=== PATIENT | male | born 1940 | race Caucasian/White ===

== ENCOUNTER 2018-07-07 11:42 | Inpatient (IN) | payer OTHER ==
[~2018-07-07] VITALS: Ht 177.8 cm; Wt 121.9 kg
[~2018-07-07 11:42] MED LIST: AMLODIPINE BESY10 MG PO; ASPIR 8181 MG PO; CATAPRES-TTS 20.2 M1 TRANSDERM; CATAPRES0.2 MG TRANSDERM; CLONIDINE HCL0.3 M3 TRANSDERM; COLACE100 MG PO; COUMADIN 5 MG TA5 M1 PO; GOLYTELY PACKE1 EACH PO; HYTRIN 5 M5 MG/1 CAP PO; LISINOPRIL20 MG PO; NITROGLYCERIN0.4 MG SUBLING; PANTOPRAZOLE SO40 M1 PO; PEPCID20 MG PO; PHENERGAN 25 MG25 M1 PO; PLAVIX 75 MG TA75 M1 PO; POTASSIUM20 PO; PROCRIT 1010000 U/M1 SUBQ; PROTONIX40 M1 PO; REGLAN 10 MG TA10 MG PO; SENNA PO; TUMS PO; TYLENOL325 MG PO; VENTOLIN HFA 1818 GM INH; VITAMIN D1000 UNI1 PO; ZOFRAN ODT4 MG DISSOLVE
[2018-07-07 12:05] LABS: ABSOLUTE NEUTROPHILS 9.2 thou/uL (1.4-8.2); BASOPHILS 0.6 % (0.0-2.0); HEMATOCRIT 28.4 % (42.0-52.0); HEMOGLOBIN 9.5 gm/dL (14.0-18.0); LYMPHOCYTES 10.1 % (24.0-44.0); MCH 30.8 pg (26.0-34.0); MCHC 33.4 g/dL (28.0-37.0); MCV 92.1 fL (80.0-100.0); MONOCYTES 9.8 % (1.0-8.0); PLATELET COUNT 256 thou/uL (150-400); POLYS 79.5 % (36.0-66.0); RBC 3.09 mil/uL (4.50-6.00); RDW 13.2 % (10.5-14.5); WBC 11.6 thou/uL (4.0-11.0)
[2018-07-07 12:07] LABS: BE(vivo) -2.8 mmol/L (-2 to +3); HCO3 22.1 mmol/L (22.0-26.0); PO2 181.1 mmHg (80.0-100.0); pH 7.372 (7.360-7.450); sO2 99.2 % (92.0-98.0)
[2018-07-07 12:14] LABS: ANION GAP 10 mmol/L (7-16); BUN 27 mg/dL (7-18); CALCIUM 9.2 mg/dL (8.5-10.1); CHLORIDE 104 mmol/L (98-107); CO2 25 mmol/L (21-32); CREATININE 1.8 mg/dL (0.7-1.3); GLUCOSE 121 mg/dL (74-106); POTASSIUM 4.4 mmol/L (3.5-5.1); SODIUM 139 mmol/L (136-145)
[2018-07-07 12:22] LABS: ALBUMIN 3.4 g/dL (3.4-5.0); SGOT 19 U/L (15-37); SGPT 26 U/L (30-65); TOTAL BILIRUBIN 0.2 mg/dL (<0.1-1.0); TOTAL PROTEIN 7.3 g/dL (6.4-8.2); TROPONIN-I <0.06 ng/mL (<0.06)
[2018-07-07 13:06] LABS: PROTIME 10.2 Seconds (9.3-11.4)
[2018-07-07] MEDS ORDERED: LIPITOR80 MG PO (13:25)
[2018-07-07] MEDS ORDERED: ELIQUIS5 MG PO (13:26)
[2018-07-07] MEDS ORDERED: SPIRIVA RESPIMAT4 G1 (13:27)
[2018-07-07] MEDS ORDERED: OCUVITE EYE +1 EACH PO (13:29)
[2018-07-07] MEDS ORDERED: COREG6.25 MG PO (13:29)
[2018-07-07] MEDS ORDERED: PROSCAR 5MG TABL5 M1 PO (15:07)
[2018-07-07] MEDS ORDERED: PHENERGAN 25 MG25 M1 PO (16:34)
[2018-07-07 16:46] LABS: TSH 0.666 uIU/mL (0.358-3.740)
--- NOTE | 2018-07-07 18:34 | NUR ---
Assumed care of Pt on arrival to unit at approx 1600. pt aox3 labored breathing weaned to 8L NC. up w/ 1 assist. coarse lung sounds. non productive cough. trace edema to lower ext. home meds resumed. iv abx infusing per order. calls appropriately. fall precautions in place.
[2018-07-07 19:20] VITALS: BP 164/83
[2018-07-07 23:40] VITALS: BP 152/58
[2018-07-08 03:21] VITALS: BP 140/54
[2018-07-08 05:34] LABS: HEMATOCRIT 26.6 % (42.0-52.0); HEMOGLOBIN 8.9 gm/dL (14.0-18.0); MCH 30.2 pg (26.0-34.0); MCHC 33.3 g/dL (28.0-37.0); MCV 90.6 fL (80.0-100.0); RBC 2.94 mil/uL (4.50-6.00); RDW 13.3 % (10.5-14.5); WBC 6.2 thou/uL (4.0-11.0)
[2018-07-08 05:45] LABS: CALCIUM 8.7 mg/dL (8.5-10.1); CREATININE 1.7 mg/dL (0.7-1.3); MAGNESIUM 2.1 mg/dL (1.8-2.4); POTASSIUM 4.6 mmol/L (3.5-5.1)
[2018-07-08 08:04] VITALS: BP 134/68
--- NOTE | 2018-07-08 08:07 | NUR ---
SLEPT MOST OF SHIFT. ASSISTED UP TO COMODE NEEDED FOR VOIDING. STATING THAT HE CANNOT VOID IN THE URINAL. MAINTAIN SAFE ENVIRONMENT. WORKING ON GOALS AND PLAN OF CARE FOR NOC. PROGRESSING SLOWLY TOWARDS DISCHARGE GOALS. CONTINUE TO ASSESS. COUGH MEDICATION GIVEN PRN.
--- NOTE | 2018-07-08 10:54 | EKG ---
[address] [address] ELECTROCARDIOGRAM REPORT Name: MILENARUSS F Room #: 357-P ADM IN M.R.#: [id number] Admission: 07/07/18 Attend Phys: Desmond Carlton MD Discharge: Date of : 44 Report #: [id number] THIS REPORT FOR: //name// [facility] ED Test Date: 2018-07-07 Test Time: 11:53:17 Pat Name: RUSS ABBOTT Department: Room: [facility] Gender: M Lan Analyst: CARI : 1940 Requested By: Sylvester Barragan Order Number: [id number] MD: Foreign Meade Measurements Intervals [place] Rate: 82 P: AK: 237 QRS: 16 QRSD: 78 T: 56 QT: 362 QTc: 423 Interpretive Statements Atrial-paced complexes Prolonged [place] interval Anteroseptal infarct, age indeterminate Compared to ECG 09/22/2014 09:06:41 First degree AV block now present Myocardial infarct finding now present Sinus rhythm no longer present Electronically Signed On 07-08-2018 10:54:23 EMPLOYEE'S REPRESENTATIVE by Foreign Meade [email or web address] <ELECTRONICALLY SIGNED> By: Foreign Meade MD 07/08/18 1054 1153 [id number] Foreign Meade MD /EPI
[2018-07-08 11:40] VITALS: BP 127/76
[2018-07-08 17:16] VITALS: BP 150/77
[2018-07-08 19:15] VITALS: BP 161/70
--- NOTE | 2018-07-08 19:58 | NUR ---
care of pt assumed at ~0700 this am. pt's activity today has consisted of up from bed to the bsc to void and back to bed. pt refused to sit up in his chair for meals today, prefering his bed for meals. pt noted to be very soa w/ activity ([facility] [place]) and takes ~ 5-10 minutes to recover after activity. pt able to reposition self in bed for comfort. pt up to the bsc ~ every 2 hours. pt receiving ivf's w/o issue today. pt received dentures paste from his daughter so was able to use his dentures for dinner and enjoy his food more than breakfast and lunch. pt co of frequent dry non-productive cough today, medication requested and given for cough that pt stated was very effective in relieving his cough today. pt is looking forward to a good night's sleep tonight.
[2018-07-08 23:15] VITALS: BP 145/56
[2018-07-09 03:46] VITALS: BP 166/65
[2018-07-09 05:32] LABS: HEMATOCRIT 25.2 % (42.0-52.0); HEMOGLOBIN 8.4 gm/dL (14.0-18.0); MCH 30.6 pg (26.0-34.0); MCHC 33.3 g/dL (28.0-37.0); MCV 91.7 fL (80.0-100.0); RBC 2.74 mil/uL (4.50-6.00); RDW 13.2 % (10.5-14.5); WBC 10.1 thou/uL (4.0-11.0)
[2018-07-09 05:38] LABS: CALCIUM 8.3 mg/dL (8.5-10.1); CREATININE 1.8 mg/dL (0.7-1.3); MAGNESIUM 2.2 mg/dL (1.8-2.4); POTASSIUM 4.7 mmol/L (3.5-5.1)
--- NOTE | 2018-07-09 06:31 | NUR ---
ASSUMED PT CARE AROUND 1900. A&OX4. PLEASANT AND COOPERATIVE. DENIES ANY PAIN. SOA W/ EXERTION. O2 SATS STABLE ON 2L NC. UP TO BSC TO VOID. PT SLEPT MOST OF THE NIGHT. FALL PRECAUTIONS IN PLACE. PROGRESSING SLOWLY TOWARD POC GOALS. WILL CONTINUE TO MONITOR FURTHER.
[2018-07-09 08:42] VITALS: BP 151/86
[2018-07-09 12:30] VITALS: BP 160/81
[2018-07-09 13:30] LABS: % SATURATION 27 % (20-39); IRON 51 ug/dL (65-175); TIBC 189 ug/dL (250-450)
--- NOTE | 2018-07-09 14:08 | NUR ---
ASSESSMENT: CM REVIEWED CHART AND MET WITH PATIENT AT THE BEDSIDE. PT IS ALERT AND ORIENTED X4. PT WAS ADMITTED DUE TO COPD EXACERBATION. PT REPORTS THAT HE LIVES IN A HOUSE WITH HIS DAUGHTER. PT REPORTS IT IS HANDICAP EQUIPPED. PT REPORTS THAT HE HAS NO STEPS TO ENTER OR ONCE INSIDE. PT REPORTS THAT HE USES A WALKER FOR AMBULATION IN THE HOME AND HAS A WHEELCHAIR FOR OUTSIDE THE HOME. PT REPORTS THAT HE HAS A GRAB BAR AND A SHOWER CHAIR. PT REPORTS HE HAS HAD HH IN THE PAST ([facility]) AND REPORTS HE FELT IT WAS A BIG WASTE OF TIME. PT REPORTS HE BELIEVES HE HAS BEEN TO THE REHAB ON OUR 5TH FLOOR BEFORE. PT/OT IS WORKING WITH PATIENT AND RECOMMENDING HH. CM DISCUSSED WITH PATIENT AND HE STATES HE DOES NOT WANT IT AND IT IS A WASTE OF TIME. CM DISCUSSED ANOTHER AGENCY COULD BE USED AND HE STATED HE DOES NOT WANT IT OR NEED IT. CM DISCUSSED WITH PATIENTS DAUGHTER WHO STATES UNDERSTANDING AND FELT HH WAS A WASTE OF TIME LAST TIME. PT REPORTS THAT HE IS NOT ON OXYGEN AT HOME BUT IS CURRENTLY ON 2L. CM WILL CONTINUE TO MONITOR TO ASSIST NEEDED.
[2018-07-09 14:15] LABS: FOLIC ACID 28.1 ng/mL (8.6-58.9)
[2018-07-09 16:51] VITALS: BP 166/79
--- NOTE | 2018-07-09 17:30 | NUR ---
ASSUMED PATIENT CARE AT 0700. A/0 X4. SOB WITH EXERTION. DENIES CHEST PAIN. UP WITH ASSISTED TO BSC. SLOWLY TOWARDS POC GOALS.
[2018-07-09 19:35] VITALS: BP 157/73
[2018-07-10 04:30] VITALS: BP 149/61
--- NOTE | 2018-07-10 04:40 | NUR ---
ASSUMED PT CARE AROUND 1900. A&OX4. PLEASANT AND COOPERATIVE. DENIES ANY PAIN. SOA W/ EXERTION. PT SLEPT MOST OF THE NIGHT. RESP EVEN AND UNLABORED. UP W/ ASSIST TO BTR OR BSC TO VOID. FALL PRECAUTIONS IN PLACE. PROGRESSING SLOWLY TOWARD POC GOALS. WILL CONTINUE TO MONITOR FURTHER.
[2018-07-10 06:17] LABS: HEMATOCRIT 25.5 % (42.0-52.0); HEMOGLOBIN 8.5 gm/dL (14.0-18.0); MCH 30.7 pg (26.0-34.0); MCHC 33.4 g/dL (28.0-37.0); RBC 2.77 mil/uL (4.50-6.00); RDW 13.3 % (10.5-14.5); WBC 9.5 thou/uL (4.0-11.0)
[2018-07-10 06:41] LABS: CALCIUM 8.5 mg/dL (8.5-10.1); CREATININE 1.8 mg/dL (0.7-1.3); MAGNESIUM 2.3 mg/dL (1.8-2.4); POTASSIUM 4.5 mmol/L (3.5-5.1)
[2018-07-10 07:02] VITALS: BP 167/81
[2018-07-10 11:21] VITALS: BP 163/70
--- NOTE | 2018-07-10 13:49 | NUR ---
ON-GOING ASSESSMENT: CM REVIEWED CHART AND SPOKE WITH ATTENDING. PT IS SLOWLY PROGRESSING TOWARDS GOALS. PT IS POSSIBLE DISCHARGE IN THE NEXT 1-2 DAYS. CM ATTEMPTED TO CONTACT PATIENTS DAUGHTER WHOM HE LIVES WITH TO UPDATE, BUT LEFT VM.
[2018-07-10 15:50] VITALS: BP 164/86
[2018-07-10 19:20] VITALS: BP 137/78
--- NOTE | 2018-07-10 19:51 | NUR ---
Assumed care of patient at 0700. Vitals have been stable. Able to titrate off oxygen today and maintaining oxygen saturations >94% on RA. Denies pain. Patient alert and oriented x4, pleasant. Up with one assist, gait belt and walker to bathroom. Does get SOB with exertion but is able to recover well on own. Patient has complained of intermittent nausea today, but no emesis. Phenergen changed to scheduled at 0600, per patient's home scheduled. Also ordered Zofran PRN - given x1 with good effect. Slowly progressing towards POC. Will continue to monitor.
[2018-07-11] VITALS (7 sets, daily range): BP systolic 133–172; BP diastolic 68–80
--- NOTE | 2018-07-11 05:15 | NUR ---
ASSUMED PT CARE AROUND 1900. A&OX4. DENIES ANY PAIN. PT SLEPT MOST OF THE NIGHT. RESP EVEN AND UNLABORED. PLACED BACK ON 2L NC EARLY THIS AM DUE TO O2 SATS 87-89% ON RA. SOA W/ EXERTION. VSS. AFEBRILE. PROGRESSING TOWARD POC GOALS. WILL CONTINUE TO MONITOR FURTHER.
[2018-07-11 05:25] LABS: HEMATOCRIT 26.3 % (42.0-52.0); HEMOGLOBIN 8.5 gm/dL (14.0-18.0); MCH 29.9 pg (26.0-34.0); MCHC 32.3 g/dL (28.0-37.0); MCV 92.5 fL (80.0-100.0); RBC 2.85 mil/uL (4.50-6.00)
[2018-07-11 05:40] LABS: CALCIUM 8.1 mg/dL (8.5-10.1); CREATININE 1.9 mg/dL (0.7-1.3); MAGNESIUM 2.4 mg/dL (1.8-2.4); POTASSIUM 4.7 mmol/L (3.5-5.1)
[2018-07-11] MEDS ORDERED: DELSYM COU30 MG/5 M1 PO (12:14)
[2018-07-11] MEDS ORDERED: BENZONATATE100 MG PO (12:14)
[2018-07-11] MEDS ORDERED: PREDNISONE 10 M10 MG PO (12:14)
[2018-07-11] MEDS ORDERED: PROTONIX 20 MG20 M1 PO (12:15)
--- NOTE | 2018-07-11 14:41 | NUR ---
ON-GOING ASSESSMENT: CM REVIEWED CHART AND MET WITH PATIENT AT THE BEDSIDE. PT CONTINUES TO REFUSE HH STATING ITS A WASTE OF TIME AND HE DOESNT WANT IT. CM HIGHLY ENCOURAGED HH AND THE BENEFITS BUT HE CONTINUES TO REFUSE. PTS DAUGHTER WHO LIVES WITH HIM IS AT THE BEDSIDE. SHE HAS A QUESTIONS ABOUT HIS RX AND [facility] STATING SHE DOES NOT THINK THEY WILL FILL THEM UNLESS IT IS A RX WRITTEN BY HIS PCP. CM CONTACTED [facility] [phone] AND 2 STAFF STATED LONG PT GOES TO THE [facility] TO GET HIS SCRIPTS FILLED THEY SHOULD HAVE NO TROUBLE FILLING THE SCRIPTS WRITTEN BY OUR PHYSICI[facility] AT THE [facility]OS[facility]. CM NOTIFIED PATIENT AND HIS DAUGHTER AND GAVE THEM THE MAIN NUMBER FOR THE [facility] AND WAS TOLD TO ASK FOR PHARMACY WITH ANY QUESTIONS. PT ALSO HAD QUESTIONS ABOUT [facility] COVERING HIS BILL HERE STATING HE NORMALLY GOES TO THE [facility] BUT SINCE HE WAS FEELING SO POORLY MONDAY WHEN HE CALLED THE AMBULANCE HE REPORTS THE AMBULANCE BROUGHT HIM HERE SINCE THE WEATHER WAS BAD RATHER THEN DRIVING ALL THE WAY TO [facility]. CM DISCUSSED NOTE FROM PRE-CERT STATING THEY CONTACTED THE [facility] AND THEY ARE NOT AUTHORIZING HIS CARE BUT HE MAY BE ELIGIBLE FOR RETRO REVIEW THROUGH THE [facility]IN. CM CONTACTED THE [facility] TO GET MORE INFO FOR PATIENT. CM DISCUSSED SITUATION WITH THE [facility] AND HE REPORTS THERE IS A NOTE THAT THE OFFICE OF COMMUNITY CARE IS ALREADY AWARE AND IF PATIENT RECEIVES A BILL TO MAKE COPIES AND MAIL IT TO THE [facility] ATTN:SHIRLEY PALACIOS. ROSEMARIE PASSED THIS ON TO THE PATIENT AND HIS DAUGHTER. CM STILL WAITING TO SEE IF PATIENT NEEDS HOME OXYGEN.
--- NOTE | 2018-07-11 15:47 | NUR ---
care of pt assumed this am @ ~0700. pt awake this am, awaiting breakfast, stating he is "so hungry". pt denies co pain, n/v/d today. pt does co soa w/ exertion (to bsc and when walked w/ pt and ot). pt noted to be wearing oxygen today (put on with noc shift) dt soa, but has been titrated off today. pt walked by rt for (activity saturation text) this afternoon to assess need for home oxygen. no need for pt to have O2 at home, informed cm/rn. pt's daughter has been at late morning till present. pt aware of impending dc today. cm/rn has called [place] pharmacy to confirm pt's ability to fill scripts given from dr. gaspar at their facility, which was a concern of the pt and his daughter. encouraged pt to take and record his weight each day to help manage his chf. pt is looking forward to going home today.
== END 2018-07-11 18:49 | disposition home or self-care (01) | DRG 189 ==
LOC: ER 11:42 → EROBS 13:56 → 3W 13:56 → ENTRNSPT 07-11 18:14 → 3W 07-11 18:49
PROVIDERS: Physician Assistant; ADMIT Internal Medicine
PROC: 5A09357 Assistance with Respiratory Ventilation, Less than 24 Consecutive Hours, Continuous Positive Airway Pressure (ICD-10-PCS; principal; 2018-07-07)
DX: J96.01 Acute respiratory failure with hypoxia (principal); J44.1 Chronic obstructive pulmonary disease with (acute) exacerbation; N18.4 Chronic kidney disease, stage 4 (severe); I25.10 Atherosclerotic heart disease of native coronary artery without angina pectoris; I48.91 Unspecified atrial fibrillation; M10.9 Gout, unspecified; N64.2 Atrophy of breast; N40.0 Benign prostatic hyperplasia without lower urinary tract symptoms; E78.5 Hyperlipidemia, unspecified; D63.8 Anemia in other chronic diseases classified elsewhere; E55.9 Vitamin D deficiency, unspecified; Z79.899 Other long term (current) drug therapy; Z79.82 Long term (current) use of aspirin; Z95.5 Presence of coronary angioplasty implant and graft; Z86.14 Personal history of Methicillin resistant Staphylococcus aureus infection; Z87.891 Personal history of nicotine dependence
CPT/HCPCS: 10879

== ENCOUNTER 2020-08-28 23:28 | Emergency (ER) | payer OTHER ==
[~2020-08-28] VITALS: Ht 175.3 cm; Wt 136.1 kg
[~2020-08-28 23:28] MED LIST changes: +BENZONATATE100 MG PO; +COREG6.25 MG PO; +DELSYM COU30 MG/5 M1 PO; +ELIQUIS5 MG PO; +LIPITOR80 MG PO; +OCUVITE EYE +1 EACH PO; +PREDNISONE 10 M10 MG PO; +PROSCAR 5MG TABL5 M1 PO; +PROTONIX 20 MG20 M1 PO; +SPIRIVA RESPIMAT4 G1
[2020-08-29 00:28] LABS: ANION GAP 7 mmol/L (7-16); BUN 25 mg/dL (7-18); CALCIUM 8.6 mg/dL (8.5-10.1); CHLORIDE 104 mmol/L (98-107); CO2 26 mmol/L (21-32); GLUCOSE 134 mg/dL (74-106); POTASSIUM 3.9 mmol/L (3.5-5.1); SODIUM 137 mmol/L (136-145)
[2020-08-29 00:38] LABS: ABSOLUTE NEUTROPHILS 6.6 thou/uL (1.4-8.2); BASOPHILS 0.5 % (0.0-2.0); EOSINOPHILS 1.9 % (0.0-3.0); HEMOGLOBIN 9.3 gm/dL (14.0-18.0); LYMPHOCYTES 19.7 % (24.0-44.0); MCH 32.5 pg (26.0-34.0); MCHC 33.2 g/dL (28.0-37.0); MCV 97.9 fL (80.0-100.0); MONOCYTES 12.4 % (1.0-8.0); PLATELET COUNT 223 thou/uL (150-400); POLYS 65.5 % (36.0-66.0); RBC 2.86 mil/uL (4.50-6.00); RDW 14.1 % (10.5-14.5)
[2020-08-29 00:46] LABS: ALBUMIN 3.2 g/dL (3.4-5.0); AMYLASE 59 U/L (25-115); DIRECT BILIRUBIN 0.2 mg/dL (<0.1-0.2); LIPASE 206 U/L (73-393); MAGNESIUM 2.1 mg/dL (1.8-2.4); PHOSPHORUS 2.8 mg/dL (2.5-4.9); SGOT 18 U/L (15-37); SGPT 18 U/L (30-65); TOTAL BILIRUBIN 0.4 mg/dL (0.2-1.0); TOTAL PROTEIN 6.6 g/dL (6.4-8.2); TROPONIN-I <0.06 ng/mL (<0.06)
[2020-08-29 02:18] VITALS: BP 113/66
--- NOTE | 2020-08-31 07:19 | EKG ---
[address] [address] ELECTROCARDIOGRAM REPORT Name: RUSS ABBOTT Room #: [facility]#: [id number] Admission: 08/28/20 Attend Phys: Discharge: 08/29/20 Date of : 44 Report #: [id number] [facility] ED Test Date: 2020-08-29 Test Time: 00:16:14 Pat Name: RUSS ABBOTT Department: Room: Gender: M Buffing Wheel Operator: mpark : 1940 Requested By: Antony Riley Order Number: [id number] MD: Jon Miller Measurements Intervals [place] Rate: 101 P: CO: QRS: 113 QRSD: 137 T: -32 QT: 368 QTc: 477 Interpretive Statements Atrial fibrillation Nonspecific intraventricular conduction delay Anterolateral infarct, age indeterminate Compared to ECG 07/07/2018 11:53:17 Intraventricular conduction delay now present Atrial-paced complex(es) or rhythm no longer present First degree AV block no longer present Myocardial infarct finding still present Electronically Signed On 08-31-2020 7:18:53 CDT by Jon Miller [email or web address] <ELECTRONICALLY SIGNED> By: Jon Miller MD, FAC 08/31/20 0718 0016 0016 Jon Miller MD, [facility] /EPI
== END 2020-08-29 04:00 | disposition home or self-care (01) ==
LOC: ER 23:28
PROVIDERS: Emergency Medicine
DX: E86.0 Dehydration (principal); D64.9 Anemia, unspecified; I12.9 Hypertensive chronic kidney disease with stage 1 through stage 4 chronic kidney disease, or unspecified chronic kidney disease; N18.9 Chronic kidney disease, unspecified; I25.10 Atherosclerotic heart disease of native coronary artery without angina pectoris; J44.9 Chronic obstructive pulmonary disease, unspecified; I48.91 Unspecified atrial fibrillation; M10.9 Gout, unspecified; Z79.82 Long term (current) use of aspirin; Z79.899 Other long term (current) drug therapy; Z88.8 Allergy status to other drugs, medicaments and biological substances

== ENCOUNTER 2020-10-10 23:28 | Emergency (ER) | payer OTHER ==
[~2020-10-10] VITALS: Ht 177.8 cm; Wt 136.1 kg
--- NOTE | ~2020-10-10 | EMS ---
[place] [id number] EMS Patient Care Report Name: RUSS ABBOTT Room #: DEP [facility]#: [id number] Admission: 10/10/20 Attend Phys: Discharge: 10/11/20 Date of : 44 Report #: [id number] THIS REPORT FOR: //name// Report Transmitted: 10/11/2020 08:23 EMS Care Summary [place], [place]/[facility] Incident [id number] @ 10/10/2020 22:29 Incident Location [address] [place] [address] Patient URSS ABBOTT Male, 79 Years 1940 Patient Address [address] [place] [address] Patient History Chronic Obstructive Pulmonary Disease (COPD),Hypertension (HTN),Pacemaker/AICD,Cardiac - Stent, Patient Allergies Prednisone, Patient Medications Finasteride, Promethazine, Atorvastatin, Folic acid, Terazosin, Carvedilol, ASA, Cholecalciferol, Ferrous Sulfate, Chief Complaint I'm too weak to get up Disposition Transported No Lights/[place] Reason Sick Person Transported To [facility] Narrative Called for a sick. Upon arrival, pt was HARRIS x 3 sitting in his chair stating he was to weak, couldn't get out of chair to use my walker. No falls or pain. [place] [id number] EMS Patient Care Report Name: RUSS ABBOTT JR Room #: [facility]#: [id number] Admission: 10/10/20 Attend Phys: Discharge: 10/11/20 Date of : 44 Report #: [id number] He stated this started approx 3 hours ago. Pt assisted to the EMS cot and was loaded into the ambulance w/o incident. Vitals obtained. Attempt 20g IV and D-stick. En route: vitals and 12 Lead. Pt report to [facility] approx 3 min out when they advised us they were on high volume. We turned around and drove all the way out back to [facility] ER. RR to ER. Arrived: pt taken to ER # and moved to their bed w/o incident. Pt care & report to ER staff. Initial Vitals @23:00P: 90,CO: 1,SpO2: 95, @22:44P: 93,R: 20,BP: 135/84,Pain: 0/10,GCS: 15,SpO2: 95,Revised Trauma: 12, @22:52P: 80,R: 18,BP: 98/51,Pain: 0/10,GCS: 15,Glucose: 175,CO: 0,SpO2: 95,Revised Trauma: 12, Assessments @22:38MENTAL:Person Oriented,Time Oriented,Place Oriented,Event Oriented,SKIN:HEENT:LUNG SOUNDS:ABDOMEN:PELVIS//GI:No Abnormalities,EXTREMITIES:Left Leg: Other,Right Leg: Other,Left Arm: Other,Right Arm: Other,PULSE:Radial: 2+ Normal,NEURO:No Abnormalities, Impression Generalized Weakness Procedures @22:42Saline Lock cc (20 ga) Site: Hand-RightResponse: UnchangedFailed@23:0012-Lead ECGResponse: UnchangedSucceeded@22:38ALS AssessmentResponse: UnchangedSucceeded@22:40StretcherResponse: Unchanged@22:573-Lead ECGResponse: UnchangedSucceeded Timeline 22:28,Call Received 22:28,Dispatch Notified 22:29,Dispatched 22:31,En Route 22:36,On Scene 22:38,At Patient 22:38,ALS Assessment,Response: UnchangedSucceeded, 22:40,Stretcher,Response: Unchanged 22:42,Saline Lock cc 20 ga Site: Hand-Right,Response: UnchangedFailed, 22:44,BP: 135/84 M,PULSE: 93,RR: 20 R,SPO2: 95 Ox,ETCO2: ,BG: ,PAIN: 0,GCS: 15, 22:45,Depart Scene 22:52,BP: 98/51 M,PULSE: 80,RR: 18 R,SPO2: 95 Ox,ETCO2: ,B,PAIN: 0,GCS: 15, 22:57,3-Lead ECG,Response: UnchangedSucceeded, 23:00,12-Lead ECG,Response: UnchangedSucceeded, 23:00,BP: / M,PULSE: 90,RR: R,SPO2: 95 Ox,ETCO2: ,BG: ,PAIN: ,GCS: , 23:26,At Destination [address] [address] EMS Patient Care Report Name: POLLY ABBOTTMERYL Mota JR Room #: [facility] Nata#: [id number] Admission: 10/10/20 Attend Phys: Discharge: 10/11/20 Date of : 44 Report #: [id number] 00:01,Call Closed Disclaimer v1.1 Copyright 2020 [employer] This EMS Care Summary contains data elements from the applicable legal record (which may be displayed differently). It is designed to provide pertinent information for the following purposes: continuity of care, clinical quality, and state data reporting. The complete legal record is available to ED staff and administrators of the receiving hospital in [employer]'s Patient Tracker. All data is provided "as is."
[2020-10-10] MEDS ORDERED: IRON325 M1 PO (23:36)
[2020-10-11 00:08] LABS: ABSOLUTE NEUTROPHILS 8.4 thou/uL (1.4-8.2); BASOPHILS 0.5 % (0.0-2.0); HEMATOCRIT 27.7 % (42.0-52.0); HEMOGLOBIN 9.1 gm/dL (14.0-18.0); LYMPHOCYTES 13.5 % (24.0-44.0); MCHC 32.7 g/dL (28.0-37.0); MCV 97.9 fL (80.0-100.0); MONOCYTES 11.5 % (1.0-8.0); PLATELET COUNT 236 thou/uL (150-400); POLYS 72.5 % (36.0-66.0); RBC 2.83 mil/uL (4.50-6.00); RDW 13.6 % (10.5-14.5); WBC 11.6 thou/uL (4.0-11.0)
[2020-10-11 00:15] LABS: ANION GAP 10 mmol/L (7-16); BUN 26 mg/dL (7-18); CHLORIDE 104 mmol/L (98-107); CO2 27 mmol/L (21-32); CREATININE 1.9 mg/dL (0.7-1.3); GLUCOSE 143 mg/dL (74-106); POTASSIUM 3.7 mmol/L (3.5-5.1); SODIUM 141 mmol/L (136-145)
[2020-10-11 00:23] LABS: TROPONIN-I <0.06 ng/mL (<0.06)
[2020-10-11 00:29] LABS: URINE BILIRUBIN NEGATIVE (Negative); URINE BLOOD NEGATIVE (Negative); URINE CLARITY CLEAR; URINE COLOR YELLOW; URINE GLUCOSE-RANDOM* NEGATIVE (Negative); URINE KETONES NEGATIVE (Negative); URINE LEUKOCYTES-REFLEX NEGATIVE (Negative); URINE NITRITE-REFLEX NEGATIVE (Negative); URINE PROTEIN (DIPSTICK) TRACE (Negative); URINE UROBILINOGEN 0.2 E.U./dl (0.2-1.0)
[2020-10-11 02:50] VITALS: BP 147/69
[2020-10-11] MEDS ORDERED: VITAMIN D325 MC3 PO (05:15)
[2020-10-11] MEDS ORDERED: RENO CAPS SOFTGE1 MG PO (05:16)
--- NOTE | 2020-10-12 08:40 | EKG ---
[place] [address] [address] [facility] [place] [address] ELECTROCARDIOGRAM REPORT Name: RUSS ABBOTT Room #: DEP [facility]#: [id number] Admission: 10/10/20 Attend Phys: Discharge: 10/11/20 Date of : 44 Report #: [id number] [facility] ED Test Date: 2020-10-10 Test Time: 23:48:21 Pat Name: RUSS ABBOTT Department: Room: Gender: Extraction Operator: JUSTA : 1940 Requested By: Aditya Thomas Order Number: [id number] MD: Gurinder Jo Measurements Intervals [place] Rate: 89 P: LA: 293 QRS: -8 QRSD: 82 T: 33 QT: 376 QTc: 458 Interpretive Statements Atrial-paced complexes Prolonged [place] interval Anteroseptal infarct, age indeterminate Baseline wander in lead(s) V3 Compared to ECG 08/29/2020 00:16:14 Sinus rhythm with atrial pacing has replaced atrial fibrillation Electronically Signed On 10-12-2020 8:40:34 CDT by Gurinder Jo [email or web address] <ELECTRONICALLY SIGNED> By: Gurinder Jo MD, [facility] 10/12/20 0840 [id number] [id number] Gurinder Jo MD, [facility] /EPI
== END 2020-10-11 02:50 | disposition home or self-care (01) ==
LOC: ER 23:28
PROVIDERS: Emergency Medicine
DX: R53.1 Weakness (principal); F03.90 Unspecified dementia, unspecified severity, without behavioral disturbance, psychotic disturbance, mood disturbance, and anxiety; I10 Essential (primary) hypertension; Z79.899 Other long term (current) drug therapy; Z79.82 Long term (current) use of aspirin; Z88.8 Allergy status to other drugs, medicaments and biological substances